=== PATIENT | female | born 1950 | race Caucasian/White ===

== ENCOUNTER → 2018-06-21 | Outpatient (CLI) | payer MEDICARE, OTHER ==
[~2018-06-21] MED LIST: APPEAREX2500 MCG PO; CALCIUM 600 +1 EAC1 PO; CALCIUM-MAG-ZI1 EACH PO; CLONAZEPAM 1 MG1 M1 PO; EFFEXOR XR150 MG PO; FOLIC ACID 40400 MC1 PO; GLUCOPHAGE500 MG PO; REQUIP0.5 MG PO; SIMVASTATIN40 MG PO
[2018-06-21 08:38] LABS: CALCIUM 9.5 mg/dL (8.5-10.1); CREATININE 0.9 mg/dL (0.6-1.3); POTASSIUM 4.2 mmol/L (3.5-5.1)
--- NOTE | 2018-06-22 14:39 | EKG ---
[place] [address] ELECTROCARDIOGRAM REPORT Name: [facility] Antelmo Room: [facility]#: [id number] Admission: 06/21/18 Attend Phys: Mike Alfred MD Discharge: Date of : 52 Report #: [id number] THIS REPORT FOR: //name// [facility] Test Date: 2018-06-21 Test Time: 08:08:17 Pat Name: NERY CALDERA Department: Room: Gender: F Quality Process Engineer: MONIQUE : 1950 Requested By: Mike Alfred Order Number: [id number] Reading MD: Narciso Penny Measurements Intervals [place] Rate: 78 P: 66 [place]: 148 QRS: 38 QRSD: 98 T: 82 QT: 392 QTc: 447 Interpretive Statements Sinus rhythm Probable left atrial enlargement minor nonspecific st-t changes No previous ECG available for comparison Electronically Signed On 06-22-2018 14:39:06 MEDICAL DIAGNOSTIC RADIOGRAPHER by Narciso Penny [email or web address] <ELECTRONICALLY SIGNED> By: Narciso Penny MD, [facility] 06/22/18 [id number] [id number] Narciso Penny MD, FACC /EPI
== END ==
LOC: M.LAB 07:46
PROVIDERS: Anesthesiology
DX: Z01.812 Encounter for preprocedural laboratory examination (principal)